=== PATIENT | female | born 1965 | race Two or more races ===

== ENCOUNTER → 2017-11-18 | Day surgery (SDC) | payer OTHER | END | disposition home or self-care (01) | LOC: ADM 11-11 13:30 → AMB-ENDOS 07:17 | DX: C20 Malignant neoplasm of rectum (principal); K64.0 First degree hemorrhoids ==

== ENCOUNTER 2018-01-21 13:12 | Inpatient (IN) | payer OTHER ==
[~2018-01-21] VITALS: Ht 170.2 cm; Wt 68.0 kg
[2018-01-21] MEDS ORDERED: SYNTHROID75 MCG (13:41)
[2018-01-21] MEDS ORDERED: FENTANYL1 EAC1 (13:42)
== END 2018-01-24 16:39 | disposition home or self-care (01) | DRG 392 ==
LOC: ER 13:12 → SURH 16:58
DX: K59.09 Other constipation (principal); K62.89 Other specified diseases of anus and rectum